=== PATIENT | male | born 1965 | race Caucasian/White ===

== ENCOUNTER 2016-11-15 00:41 | Inpatient (IN) | payer OTHER ==
--- NOTE | ~2016-11-15 | CR72 ---
[facility]. [facility] A Service of [facility] & [facility] RADIOLOGY TEXT RESULTS PATIENT: YVONNE TOVAR JR LOCATION: [place] [address] : [birth year] UNIT #: [id number] AGE: [address]: Char Mojica MD SEX: M ORDER DR: [id number] [place] [address] [id number] I MR#: [id number] Acc #: [id number] NAME: YVONNE TOVAR JR : 1965 SEX: M STUDY DATE/TIME: 11/15/2016 01:36 UNIT: SEDOF ROOM: [facility] STUDY DESCRIPTION: CR Chest Single View Portable Attending Physician: Char Mojica M.D. Ordering Physician: Aj Montiel M.D. Primary Care Physician: No Primary Care Physician MEDICAL IMAGING REPORT This report is preliminary unless electronic signature is present. EXAM Portable chest 11/15 at 01:36 INDICATIONS Chest pain after overdose tonight. Patient found down. FINDINGS AP portable chest was obtained. No comparison. Lungs are emphysematous. There is right upper lobe infiltrate which likely reflects pneumonia. Cardiac mediastinal contours are within normal limits. There is no pneumothorax. There is gaseous distension of the stomach. IMPRESSION Emphysema with right upper lobe pneumonia. Radiographic follow up until clear is recommended. There is some gaseous distension of the stomach. Dictated by... Kamar Lemus Jr., M.D. THIS IS AN ELECTRONICALLY VERIFIED REPORT Kamar Lemus Jr., M.D. at 11/15/2016 6:02 AM DANIA/linda TD: 11/15/2016 05:31 JOB #: [id number] MEDICAL IMAGING REPORT Page 1 of 1
--- NOTE | ~2016-11-15 | CO ---
Unit #: [id number] #: [id number] Patient: OREN TOVAR JR [id number] [address] [place], [place] [address] [id number] I MR#: [id number] NAME: OREN TOVAR JR ROOM: 558 Age: 51 Sex: M Admission Date: 11/15/2016 : 1965 Attending Physician: Char Mojica M.D. Primary Care Physician: Emi Primary Care Physician Consultation Date: 11/18/2016 CONSULTATION REPORT REASON FOR CONSULTATION Follow-up discussion. HISTORY OF PRESENT ILLNESS Oren Tovar is a 51-year-old white male seen in room 558 bed 1 at [facility]. Seen was seen on 11/18/2016. The patient is diagnosed with opiate use disorder, major depressive disorder. The patient's urine drug screen was positive for amphetamine and opiates. The patient appears to be withdrawn, isolative, flat affect, sad and dysphoric mood, but denied any suicidal or homicidal ideation. Vital signs are 97.9, 99, 20, 158/109, oxygen saturation 97%. The patient is tolerating medication fairly well. Currently on Celexa/Desyrel combination. Complete review of systems unremarkable. MENTAL STATUS EXAMINATION General appearance, the patient is dressed casually in hospital attire, lying comfortably. Attention span and concentration fair. Speech is regular rate. Mood sad and dysphoric, irritable. Oriented to place and person. Thought process coherent. Thought content, the patient denied any thoughts of harming self or others. Recent and remote memory fair. Language, able to name objects and repeat phrases. Fund of knowledge fair to slightly impaired. DIAGNOSES 1. Opiate use disorder, severe, F11.2. 2. Major depressive disorder, recurrent, F33.2. ASSESSMENT/PLAN 1. Supportive psychotherapy. Psychoeducation provided to the patient. 2. Educated about the benefits and side effects of medication in the course of illness. 3. Please feel free to call if any questions. Telephone number is [phone]. Dictated by... Richard Dimas TD: 11/19/2016 11:32 JOB #: [id number] Unit #: [id number] #: [id number] Patient: OREN TOVAR JR CONSULTATION REPORT Page 1 of 1 X Lucien Galan MD CONSULTATION REPORT
--- NOTE | ~2016-11-15 | EKG ---
PATIENT: YVONNE TOVAR UNIT #: [id number] Ventricular Rate: 108 BPM Atrial Rate: 108 BPM P-R Interval: 146 ms QRS Duration: 142 ms Q-T Interval: 396 ms QTC Calculation(Bezet): 530 ms P Spring: 80 degrees Calculated R Spring: 85 degrees Calculated T Spring: 67 degrees Diagnosis Line: Sinus tachycardia Diagnosis Line: Right bundle branch block Diagnosis Line: Abnormal ECG Diagnosis Line: No previous ECGs available Diagnosis Line: Confirmed by MERLY EVANS MD ([id number]) on Diagnosis Line: 11/26/2016 7:13:12 AM INTERPRETING MD: EVELINA
--- NOTE | ~2016-11-15 | CT57 ---
[facility] A Service of [facility] RADIOLOGY TEXT RESULTS PATIENT: YVONNE TOVAR JR LOCATION: [place] [address]- : [birth year] UNIT #: [id number] AGE: [address]: Char Mojica MD SEX: M ORDER DR: [id number] [facility] [address] [facility]. [place], [place] [address] [id number] I MR#: [id number] Acc #: [id number] NAME: YVONNE TOVAR JR : 1965 SEX: M STUDY DATE/TIME: 11/15/2016 18:41 UNIT: C5B ROOM: [facility] STUDY DESCRIPTION: CT Chest Wo Cont Attending Physician: Char Mojica M.D. Ordering Physician: Physician Non-Staff Primary Care Physician: Primary Care Physician No MEDICAL IMAGING REPORT This report is preliminary unless electronic signature is present EXAM CT chest without contrast, 11/15/2016 18:41 hours. CLINICAL HISTORY Coughing and shortness of air today with pneumonia on chest x-ray. Question underlying malignancy, right upper lobe density on chest film, possible septic emboli. COMPARISON Chest film 11/15/2016 TECHNIQUE Helical noncontrasted images were obtained from the thoracic inlet through the adrenal glands. Sagittal and reconstructions were performed. Total exam DLP 297 mGy-cm. This CT exam was performed with one or more of the following radiation dose reduction techniques: automatic exposure control, adjustment of mA and/or kV according to patient size, and iterative reconstruction. FINDINGS Images through the thoracic inlet demonstrate no thyroid mass or supraclavicular adenopathy. Images through the chest demonstrate ascending aortic aneurysm measuring up to 4.4 cm. Cardiac chambers, pericardium and esophagus are normal. There is no definite lymphadenopathy detected on this noncontrasted study. Lung window images are abnormal. There is patchy airspace density diffusely in the posterior aspect of the right upper lobe and in the superior segment of both lower lobes. There is no definite mass, nodule or wedge-like defect. The findings are most suggestive of multifocal STS. [facility] A Service of [facility] RADIOLOGY TEXT RESULTS PATIENT: YVONNE TOVAR JR LOCATION: [place] [address] : [birth year] UNIT #: [id number] AGE: [address]: Char Mojica MD SEX: M ORDER DR: pneumonia. There is no pleural fluid. Limited views through the upper abdomen demonstrate a large amount of food debris distending the stomach which is incompletely imaged. Correlate with timing of the most recent meal. Exam is performed at 1841 hours which could be after dinner. IMPRESSION 1. There is multifocal airspace change diffusely in the right upper lobe and in the superior segments of both lower lobes, most consistent with multifocal pneumonia. No definite mass, nodule or emboli are seen. There is no pleural fluid. 2. There is a fusiform ascending aortic aneurysm measuring up to 4.4 cm in the ascending aorta. Dictated by... Anika Pepe M.D. THIS IS AN ELECTRONICALLY VERIFIED REPORT Anika Pepe M.D. at 11/16/2016 9:29 AM Quinn TD: 11/16/2016 01:28 JOB #: [id number] MEDICAL IMAGING REPORT Page 1 of 1 COPY
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
--- NOTE | ~2016-11-15 | DS ---
Unit #: [id number] #: [id number] Patient: YVONNE TOVAR JR [id number] [address] [place], [place] [address] [id number] I MR#: [id number] NAME: YVONNE TOVAR JR ROOM: 55 Age: 51 Sex: M Admission Date: 11/15/2016 : 1965 Discharge Date: 11/19/2016 Attending Physician: Char Mojica M.D. DISCHARGE SUMMARY FINAL DIAGNOSES 1. Pneumonia. 2. Hypertension, uncontrolled. 3. IV drug abuse. 4. Depression. 5. Alcohol abuse. 6. Noncompliance. DISCHARGE MEDICATIONS Albuterol inhaler two puffs t.i.d. p.r.n., Tylenol 650 q.4 p.r.n., Celexa 20 mg q.h.s., Lopressor 25 mg b.i.d., Catapres 0.1 mg t.i.d., Levaquin 750 mg p.o. daily for 8 days. HOSPITAL COURSE A 51-year-old male, who was admitted to the hospital on 11/15/2016 with the complaint of upper respiratory tract infection and feeling sick two days prior to coming to hospital. The patient was diagnosed with pneumonia, acute kidney injury, and uncontrolled hypertension. The patient was admitted to telemetry unit. Dr. Bejarano was consulted. The patient was started on IV Zosyn 3.375 g q.6 hourly. The patient has received this medication from 11/15/2016 until 11/19/2016. Echocardiogram was done, which shows left ventricular ejection fraction of 55%. Mild concentric left ventricular hypertrophy. Mild to moderate mitral regurgitation is present. Right ventricular systolic pressure is 52. Small pericardial effusion. No evidence of annular calcification. The patient did have uncontrolled hypertension. We have started him on clonidine and Lopressor. The medication need to be continued. The patient has been advised to be compliant with the medications. Depression, Dr. Galan was consulted and the patient has been started on depression medications. Prescription for all the medications have been written. PHYSICAL EXAMINATION VITAL SIGNS: On discharge, blood pressure 160/92, respiratory rate 24, pulse is 93, temperature 98. HEENT: Head is normocephalic. CHEST: Fair air entry. Decreased breath sounds on right upper lobe. CVS: S1 and S2 positive. Regular rhythm. ABDOMEN: Soft. DIAGNOSTIC STUDIES Unit #: [id number] #: [id number] Patient: YVONNE TOVAR JR LABORATORY RESULTS: On discharge, sodium 139, potassium 4.0, chloride 107, BUN 13, creatinine 0.6, procalcitonin 0.10. WBC 9.8, hemoglobin 12.8, hematocrit 38.5, and platelet count of 317. Blood cultures have been negative. IMAGING STUDIES: Done during hospitalization was chest x-ray on admission that showed emphysema with right upper lobe pneumonia. CT of the chest was done and that showed multifocal airspace change diffusely in the right upper lobe and in the superior segments of the both lower lobes consistent with multifocal pneumonia. DISCHARGE INSTRUCTIONS 1. The patient is being discharged home in stable condition. 2. Continue Levaquin 750 mg p.o. daily for 8 days. 3. Blood pressure medications prescription has been written. The patient has been advised to be compliant with the medications. 4. The patient needs to follow up with primary care provider in 1 week to check the blood pressure. 5. Repeat chest x-ray need to be done in 6 weeks or so to make sure the consolidation has been resolved. 6. Tobacco cessation counseling done. Dictated by... Richard Okeefe/mayra TD: 11/22/2016 01:05 JOB #: [id number] DISCHARGE SUMMARY Page 1 of 1 X Char Mojica MD X DISCHARGE SUMMARY
--- NOTE | ~2016-11-15 | CR230 ---
[facility] A Service of [facility] & [facility] RADIOLOGY TEXT RESULTS PATIENT: YVONNE TOVAR JR LOCATION: [place] [address]- : [birth year] UNIT #: [id number] AGE: [address]: Char Mojica MD SEX: M ORDER DR: [id number] [facility] [address] [facility]. [place], [place] [address] [id number] I MR#: [id number] #: [id number] NAME: YVONNE TOVAR JR : 1965 SEX: M STUDY DATE/TIME: 11/15/2016 13:21 UNIT: B ROOM: [facility] STUDY DESCRIPTION: CR Shoulder Min 2 View Rt Attending Physician: Char Mojica M.D. Ordering Physician: Char Mojica M.D. Primary Care Physician: No Primary Care Physician MEDICAL IMAGING REPORT This report is preliminary unless electronic signature is present EXAM Right shoulder, 4 views. HISTORY Pain and right shoulder after overdose. Pain for years. FINDINGS A total of 4 views are submitted. There is narrowing of the glenohumeral joint with flattening of the articular surface of the humeral head and of the bony glenoid and evidence of sclerosis and subchondral cyst formation. This is present on the studies of 2008 but has certainly progressed. There is advanced AC joint osteoarthropathy. No fractures are seen. The patient does have infiltrate in the right upper lobe. CONCLUSION Advanced arthritic changes within the right shoulder joint as noted. Advanced AC joint osteoarthropathy. New infiltrate in the right upper lobe. Dictated by... Aj Cardoza M.D. THIS IS AN ELECTRONICALLY VERIFIED REPORT Aj Cardoza M.D. at 11/16/2016 5:02 PM JACKIE/taylor TD: 11/15/2016 14:50 JOB #: [id number] MEDICAL IMAGING REPORT Page 1 of 1 COPY
--- NOTE | ~2016-11-15 | EKG ---
PATIENT: YVONNE TOVAR UNIT #: [id number] Ventricular Rate: 91 BPM Atrial Rate: 91 BPM P-R Interval: 158 ms QRS Duration: 138 ms Q-T Interval: 406 ms QTC Calculation(Bezet): 499 ms P Radnor: 71 degrees Calculated R Radnor: 73 degrees Calculated T Radnor: 35 degrees Diagnosis Line: Normal sinus rhythm Diagnosis Line: Right bundle branch block Diagnosis Line: Abnormal ECG Diagnosis Line: No previous ECGs available Diagnosis Line: Confirmed by ANITHA CEJA MD ([id number]) on 11/16/2016 Diagnosis Line: 11:00:23 PM INTERPRETING MD: BRENNA CASTAÑEDA
--- NOTE | ~2016-11-15 | CO ---
Unit #: [id number] #: [id number] Patient: OREN TOVAR JR [id number] [place] 085810 [facility] [place] [facility]. [place], [place] [address] [id number] I MR#: [id number] NAME: OREN TOVAR JR ROOM: 55 Age: 51 Sex: M Admission Date: 11/15/2016 : 1965 Attending Physician: Char Mojica M.D. Consultation Date: 11/17/2016 CONSULTATION REPORT REASON FOR ASSESSMENT Overdose, history of opioid abuse. HISTORY OF PRESENT ILLNESS Mr. Oren Albarran is a 51-year-old male, seen on 558, bed 1 on 11/17/2016 at [facility]. The patient reported feeling sad and depressed. Reported history of opioid abuse. The patient was unable to give any reliable information, but reported that he was injecting IV heroin. The patient reported feeling sad, depressed, currently denied any suicidal or homicidal ideation. Reported trouble falling asleep, staying asleep, feeling of hopelessness and worthlessness. The patient reports currently receiving treatment for pneumonia. The patient also reported use of alcohol. PAST PSYCHIATRIC HISTORY Unremarkable for any history of any previous treatment or any suicide attempt. MEDICAL HISTORY AND MEDICATION HISTORY Pneumonia, IV drug abuse, rule out infective endocarditis, septic emboli, alcoholism, noncompliance. Medication; please refer to MAR. FAMILY HISTORY AND SOCIAL HISTORY The patient has a poor support system. No history of any abuse. History of substance abuse as mentioned above. History of opioid abuse and alcohol abuse. REVIEW OF SYSTEMS Complete review of systems is unremarkable except as mentioned above. MENTAL STATUS EXAMINATION General appearance, the patient dressed casually. Attention span and concentration, fair. Speech, regular rate. Oriented in time, place, and person. Mood and affect, sad and dysphoric. Thought process, circumstantial. Thought content, guarded and paranoid, but denied any thoughts of harming self or others. Recent and remote memory, poor. Language, able to name object and repeat phrases. Fund of knowledge, fair to slightly impaired. Insight and judgment, fair to slightly impaired. DIAGNOSES Psychiatric: 1. Opioid use disorder, severe, F11.20. 2. Major depressive disorder, recurrent, F33.2. Secondary diagnosis: Deferred. Unit #: [id number] #: [id number] Patient: OREN TOVAR JR Medical diagnosis: Please refer to H and P. ASSESSMENT/PLAN 1. Supportive psychotherapy and psychoeducation provided to the patient. 2. Educated about benefits and side effects of medication and course and prognosis of illness. 3. Advised to continue with current treatment with a plan to add Celexa 20 mg daily for mood symptom, and trazodone 50 mg at bedtime for sleep. We will continue to follow. If needed, consider further adjustment of medication. Please feel free to call if any questions telephone #[phone]. Dictated by... Richard Dimas/mayra TD: 11/18/2016 05:55 JOB #: [id number] CONSULTATION REPORT Page 1 of 1 X Lucien Galan MD X CONSULTATION REPORT
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
[~2016-11-15 00:41] MED LIST: ACYCLOVIR PO; DOLOBID500 MG PO; EC-NAPROSYN500 MG PO; FLEXERIL PO; KEFLEX500 M1 PO; LISINOPRIL PO; MOBIC PO; NO MEDICATIONS; PERCOCET5/325 PO; PHENERGAN25 MG PO; SKELAXIN PO; TRICOR PO
[2016-11-15 01:11] LABS: BASOPHIL# 0.1 X10e3 (0-0.3); BASOPHIL% 0.3 % (0-2.5); HEMATOCRIT 37.6 % (38.0-50.0); HEMOGLOBIN 12.6 gm/dL (13.0-16.0); LYMPHOCYTE% 4.4 % (17.0-45.0); MEAN CELL VOLUME 89.2 FL (83-96); MEAN CORPUSCULAR HEMOGLOBIN 29.8 PG (28-34); MEAN CORPUSCULAR HGB CONC 33.4 g/dL (30-36); MEAN PLATELET VOLUME 7.5 FL (6.5-11.5); MONOCYTE# 1.2 X10e3 (0-1.0); MONOCYTE% 5.1 % (3.0-12.0); NEUTROPHIL# 21.2 X10e3 (1.5-7.1); NEUTROPHIL% 90.2 % (40-75); PLATELET COUNT 317 X10e3 (140-420); RED BLOOD COUNT 4.21 X10e (3.90-5.60); RED CELL DISTRIBUTION WIDTH 13.7 % (11.0-15.5); WHITE BLOOD COUNT 23.5 X10e3 (4.0-10.5)
[2016-11-15 01:13] LABS: DIFF IND NO
[2016-11-15 01:27] LABS: ALBUMIN SERUM 3.9 g/dL (3.5-5.0); ALKALINE PHOSPHATASE 83 U/L (32-92); ALT (SGPT) 71 U/L (10-40); AST (SGOT) 89 U/L (10-42); BILIRUBIN, DIRECT 0.1 mg/dL (0.0-0.2); BILIRUBIN,INDIRECT 0.3 mg/dL (0.0-0.9); BILIRUBIN,TOTAL 0.4 mg/dL (0.2-2.0); BLOOD UREA NITROGEN 26 mg/dL (9-23); CARBON DIOXIDE 22 mmol/L (22-31); CHLORIDE 109 mmol/L (100-111); GLOM FILT RATE Estimated 37.5 mL/min (>60); GLUCOSE FASTING 138 mg/dL (70-110); POTASSIUM 4.5 mmol/L (3.5-5.1); PROTEIN TOTAL SERUM 7.1 g/dL (6.0-8.3); SALICYLATE <4.0 mg/dL; SODIUM 143 mmol/L (135-145)
[2016-11-15 01:31] LABS: POC - CKMB 3.8 ng/mL (0.0-7.9); POC - MYOGLOBIN >500.0 ng/mL (0.0-169.0); POC - TROPONIN <0.05 ng/mL (<=0.05)
[2016-11-15 01:36] LABS: ACETAMINOPHEN <10 ug/mL; ALCOHOL BLOOD <5 mg/dL (0)
[2016-11-15 01:54] LABS: URINE SOURCE CLEAN CATCH
[2016-11-15 01:56] LABS: URINE APPEARANCE CLEAR; URINE BILIRUBIN NEG (NEG); URINE BLOOD TRACE-INTACT (NEG); URINE COLOR YELLOW; URINE GLUCOSE NEG (NORM); URINE KETONE NEG (NEG); URINE LEUKOCYTE ESTERASE NEG (NEG); URINE NITRATE NEG (NEG); URINE PH 5.5 (5-8); URINE PROTEIN TRACE (NEG); URINE SPECIFIC GRAVITY 1.025 (1.003-1.035); URINE UROBILINOGEN 0.2 MG/DL (NORM)
[2016-11-15 01:58] LABS: MICRO INDICATED? YES
[2016-11-15 02:03] LABS: CULTURE INDICATED? NO; URINE BACTERIA NEG (NEG); URINE MUCUS PRESENT; URINE SQUAMOUS EPITHELIAL CELL OCCAS /[HPF]
[2016-11-15 02:04] LABS: URINE SPERM PRESENT
[2016-11-15 02:06] LABS: AMPHETAMINE POS (NEG); BARBITURATES NEG (NEG); BENZODIAZEPINES NEG (NEG); COCAINE NEG (NEG); MARIJUANA NEG (NEG); OPIATES POS (NEG); TRICYCLIC ANTIDEPRESSANTS NEG (NEG); U METHADONE NEG (NEG)
[2016-11-16 06:17] LABS: BASOPHIL# 0.1 X10e3 (0-0.3); BASOPHIL% 0.6 % (0-2.5); EOSINOPHIL# 0.1 X10e3 (0-0.7); EOSINOPHIL% 0.8 % (0.0-7.0); HEMATOCRIT 30.8 % (38.0-50.0); HEMOGLOBIN 10.3 gm/dL (13.0-16.0); LYMPHOCYTE# 1.2 X10e3 (1.0-3.5); LYMPHOCYTE% 13.6 % (17.0-45.0); MEAN CELL VOLUME 89.3 FL (83-96); MEAN CORPUSCULAR HEMOGLOBIN 29.8 PG (28-34); MEAN CORPUSCULAR HGB CONC 33.4 g/dL (30-36); MEAN PLATELET VOLUME 7.8 FL (6.5-11.5); MONOCYTE# 0.5 X10e3 (0-1.0); MONOCYTE% 5.4 % (3.0-12.0); NEUTROPHIL# 6.8 X10e3 (1.5-7.1); NEUTROPHIL% 79.6 % (40-75); PLATELET COUNT 175 X10e3 (140-420); RED BLOOD COUNT 3.45 X10e (3.90-5.60); RED CELL DISTRIBUTION WIDTH 14.1 % (11.0-15.5)
[2016-11-16 06:18] LABS: DIFF IND NO; WHITE BLOOD COUNT 8.6 X10e3 (4.0-10.5)
[2016-11-16 07:39] LABS: BUN/CREATININE RATIO 21.66; CALCIUM SERUM 7.2 mg/dL (8.4-10.2); CREATININE SERUM 0.6 mg/dL (0.6-1.4); GLOM FILT RATE Estimated 116.5 mL/min (>60); POTASSIUM 3.5 mmol/L (3.5-5.1)
[2016-11-16 10:12] LABS: MB 5.3 ng/ml
[2016-11-17 05:34] LABS: HEMATOCRIT 37.4 % (38.0-50.0); MEAN CELL VOLUME 89.4 FL (83-96); MEAN CORPUSCULAR HEMOGLOBIN 29.4 PG (28-34); MEAN CORPUSCULAR HGB CONC 32.9 g/dL (30-36); MEAN PLATELET VOLUME 8.2 FL (6.5-11.5); RED BLOOD COUNT 4.18 X10e (3.90-5.60); RED CELL DISTRIBUTION WIDTH 13.6 % (11.0-15.5); WHITE BLOOD COUNT 9.7 X10e3 (4.0-10.5)
[2016-11-17 07:03] LABS: HEMOGLOBIN 12.3 gm/dL (13.0-16.0)
[2016-11-17 07:05] LABS: ALBUMIN SERUM 3.2 g/dL (3.5-5.0); BILIRUBIN,TOTAL 0.5 mg/dL (0.2-2.0); BUN/CREATININE RATIO 12.85; CALCIUM SERUM 8.8 mg/dL (8.4-10.2); CREATININE SERUM 0.7 mg/dL (0.6-1.4); GLOM FILT RATE Estimated 109.3 mL/min (>60); POTASSIUM 4.1 mmol/L (3.5-5.1); PROTEIN TOTAL SERUM 6.2 g/dL (6.0-8.3)
[2016-11-17 15:05] LABS: HA AB IGM (HEPPAN) Nonreactive (()); HB CORE AB IGM (HEPPAN) Nonreactive (Nonreactive); HB S AG (HEPPAN) Nonreactive (Nonreactive); HEP C AB (HEPPAN) Nonreactive (Nonreactive); HEP C AB SIGNAL TO CUTOFF 0.01 ratio (<1.00)
[2016-11-18 08:10] LABS: BUN/CREATININE RATIO 16.66; CALCIUM SERUM 9.1 mg/dL (8.4-10.2); CREATININE SERUM 0.6 mg/dL (0.6-1.4); GLOM FILT RATE Estimated 116.5 mL/min (>60); POTASSIUM 4.1 mmol/L (3.5-5.1)
[2016-11-19 05:26] LABS: HEMATOCRIT 38.5 % (38.0-50.0); HEMOGLOBIN 12.8 gm/dL (13.0-16.0); MEAN CELL VOLUME 87.8 FL (83-96); MEAN CORPUSCULAR HEMOGLOBIN 29.2 PG (28-34); MEAN CORPUSCULAR HGB CONC 33.3 g/dL (30-36); MEAN PLATELET VOLUME 7.5 FL (6.5-11.5); RED BLOOD COUNT 4.39 X10e (3.90-5.60); RED CELL DISTRIBUTION WIDTH 13.7 % (11.0-15.5); WHITE BLOOD COUNT 9.8 X10e3 (4.0-10.5)
[2016-11-19 06:43] LABS: BUN/CREATININE RATIO 21.66; CALCIUM SERUM 9.1 mg/dL (8.4-10.2); CREATININE SERUM 0.6 mg/dL (0.6-1.4); GLOM FILT RATE Estimated 116.5 mL/min (>60)
[2016-11-19 06:51] LABS: PROCALCITONIN 0.1 NG/ML
[2016-11-19] MEDS ORDERED: CELEXA20 MG PO (15:48)
[2016-11-19] MEDS ORDERED: ALBUTEROL17 GM INH (15:49)
[2016-11-19] MEDS ORDERED: DESYREL50 MG PO (15:49)
[2016-11-19] MEDS ORDERED: CATAPRES0.1 MG PO (15:50)
[2016-11-19] MEDS ORDERED: LEVAQUIN750 MG PO (15:50)
[2016-11-19] MEDS ORDERED: ACETAMINOPHEN PO (15:51)
[2016-11-19] MEDS ORDERED: LOPRESSOR PO (16:20)
== END 2016-11-19 17:36 | disposition home or self-care (01) | DRG 178 ==
LOC: SED 00:41 → SEDOF 02:33 → C5B 04:33
PROVIDERS: Emergency Medicine; Hospitalist; Internal Medicine; Internal Medicine Pulmonary Disease; Physician Assistant Medical
PROC: B246ZZZ Ultrasonography of Right and Left Heart (ICD-10-PCS; principal; 2016-11-16)
DX: J69.0 Pneumonitis due to inhalation of food and vomit (principal); N17.9 Acute kidney failure, unspecified; M62.82 Rhabdomyolysis; F33.2 Major depressive disorder, recurrent severe without psychotic features; F11.20 Opioid dependence, uncomplicated; J44.1 Chronic obstructive pulmonary disease with (acute) exacerbation; I10 Essential (primary) hypertension; F15.10 Other stimulant abuse, uncomplicated; F10.20 Alcohol dependence, uncomplicated; M25.511 Pain in right shoulder; Z87.891 Personal history of nicotine dependence; Z91.14 Patient's other noncompliance with medication regimen
CPT/HCPCS: 36415; 71010; 71250; 73030; 80048; 80053; 80074; 80076; 80202; 80307; 81003; 82308; 82550; 82553; 83735; 83874; 84484; 85025; 85027; 87040; 87070; 87205; 87806; 93005; 93306; 94640; 94760; 96360; 97110; 97162; 97166; 97535; 99291; G0480; J0360; J1650; J2543; J3370